=== PATIENT | female | born 1945 | race Caucasian/White ===

== ENCOUNTER → 2016-12-21 | Outpatient (CLI) | payer OTHER, MEDICARE | LOC: BMCIMAGING 09:50 | DX: Z12.31 Encounter for screening mammogram for malignant neoplasm of breast (principal) | CPT/HCPCS: G0202 ==

== ENCOUNTER → 2017-01-02 | Outpatient (CLI) | payer OTHER, MEDICARE | LOC: BMCIMAGING 12:42 | DX: R92.8 Other abnormal and inconclusive findings on diagnostic imaging of breast (principal); N63 Unspecified lump in breast | CPT/HCPCS: 76641; G0206 ==

== ENCOUNTER → 2017-02-15 | Outpatient (CLI) | payer OTHER, MEDICARE ==
[~2017-02-15] MED LIST: DEPO METHYLPREDNISOLONE 80 MG/ML SDV ONE; IOPAMIDOL (ISOVUE 370) 100 ML BTL IV ONE; LIDOCAINE 1% 30 ML SDV ONE; NA BICARBONATE 50 MEQ/50 ML VIAL ONE; ROPIVACAINE HCL 150 MG/30 ML INJ ONE
== END ==
LOC: FIMAGING 12:49
PROVIDERS: ATTEND Orthopaedic Surgery
DX: M25.551 Pain in right hip (principal)
CPT/HCPCS: 20610; J1040; J2795; Q9967

== ENCOUNTER 2017-11-25 10:45 | Observation (INO) | payer OTHER, MEDICARE ==
--- NOTE | 2017-12-22 11:49 | GHP ---
[f rep st] PREOP HISTORY AND PHYSICAL DATE OF ADMISSION: 12/23/2017 DATE OF PLANNED PROCEDURE: 12/23/2017. PREOPERATIVE DIAGNOSIS: Left shoulder rotator cuff tear. PLANNED PROCEDURE: Left rotator cuff repair. 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 She has injured the l eft shoulder. MRI was obtained, which showed a full-thickness cuff tear there. Decision has been ma tejal to proceed with a rotator cuff repair. PRIOR MEDICAL HISTORY: None. PRIOR SURGICAL HISTORY: Rotator cuff repair. ALLERGIES: Sulfa antibiotics. MEDICATIONS: Please see attached medication list. 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 She does not smoke, does not drink alcohol. REVIEW OF SYSTEMS: No shortness of breath or chest pain. PHYSICAL EXAMINATION: GENERAL: Healthy-appearing 72-year-old female. Alert and oriented x3. VITAL SIGNS: Blood pressure is 128/77, P 76, heart rate is 77, respiratory rate is 16 on room air. HEENT : Normocephalic, atraumatic. Extraocular muscles are intact. NECK: Supple. There is no lymphaden opathy, no JVD. CHEST: Clear to auscultation. CARDIOVASCULAR: Regular rate and rhythm. ABDOMEN: Soft, nontender, nondistended. EXTREMITIES: Focusing on the left shoulder, there is no obvious atr ophy in the supraspinatus or infraspinatus fossa. Active range of motion of the left shoulder: She has full extension, forward flexion to 150 degrees, passively I can get her to 170 degrees. Actively she has 60 degrees of external rotation, passively I can get her to 80. Internal rotation, she can get her thumb to L1. Rotator cuff strength: Supraspinatus 4-/5, infraspinatus 4/5, subscapularis 4+ /5. She does have a positive impingement sign. IMAGING STUDIES: MRI is reviewed, shows a full-thickness rotator cuff repair. PLAN: Rotator cuff repair, left shoulder. /[id number]/MODL
[2017-12-23] MEDS ORDERED: ceFAZolin 2 GM/SWFI 2 GM/20 ML SYR IVP ONE (06:10)
[2017-12-23] MEDS ORDERED: LR 1,000 ML IV ONE (06:13)
[2017-12-23] MEDS ORDERED: LIDOCAINE 1% 2 ML INJ ID PRN (06:13)
[2017-12-23] MEDS ORDERED: PROPOFOL 200 MG/20 ML VIAL ONE (06:26)
[2017-12-23] MEDS ORDERED: fentaNYL 100 MCG/2 ML INJ ONE ×2 (06:26→08:10)
[2017-12-23] MEDS ORDERED: LIDOCAINE 2% 100 MG/5 ML SYR ONE (06:27)
--- NOTE | 2017-12-23 06:41 | PDANEPAE ---
ANE History of Present Illness L shoulder injury here for rotator cuff repair ANE Past Medical History - Cardiovascular History Hx Hypertension: No Hx Arrhythmias: No Hx Chest Pain: No Hx Coronary Artery / Peripheral Vascular Disease: No Hx CHF / Valvular Disease: Yes Hx Palpitations: No Cardiovascular History Comment: heart murmur- followed by [facility] [place] Cards - Pulmonary History Hx COPD: No Hx Asthma/Reactive Airway Disease: Yes Hx Recent Upper Respiratory Infection: No Hx Oxygen in Use at Home: No Hx Sleep Apnea: No Sleep Apnea Screening Result - Last Documented: Negative Pulmonary History Comment: MILD ASTHMA - uses inhaler- instructed pt to bring with her. gets sob when particulates are high in the air - Neurologic History Hx Cerebrovascular Accident: No Hx Seizures: No Hx Dementia: No - Endocrine History Hx Diabetes: No Endocrine History Comment: hypothyroidism - Renal History Hx Renal Disorders: No - Liver History Hx Hepatic Disorders: No Hepatic History Comment: hx of slightly elevated liver enzymes - Neurological & Psychiatric Hx Hx Neurological and Psychiatric Disorders: No - Cancer History Hx Cancer: No - Congenital Disorder History Hx Congenital Disorders: No - GI History Hx Gastrointestinal Disorders: Yes Gastrointestinal History Comment: tends to be constipated- uses magnesium to help with regularity. occ reflux in the last 5 months or so - Other Health History Other Health History: legally blind. wears glasses - Chronic Pain History Chronic Pain: Yes (left shoulder, hips) - Surgical History Prior Surgeries: 12/27/14 right shoulder scope with [facility]. BREAST LUMPECTOMY L. LIPOSUCTION ABD. FACE. EYE, & BROW LIFT ANE Review of Systems Review of Systems: - Exercise capacity METS (RN): 4 METS ANE Patient History - Allergies Allergies/Adverse Reactions: gluten Allergy (Verified 12/02/17 11:09) food intolerance lactose Allergy (Verified 12/02/17 11:09) food intolerance perfume Allergy (Verified 12/02/17 11:10) sensitivity too Sulfa (Sulfonamide Antibiotics) Allergy (Verified 12/02/17 11:09) happened as a child- has not been tested since chemicals Allergy (Uncoded 12/02/17 11:10) sensitivity too - Home Medications Home Medications: Herbals/Supplements -Info Only 1 ea PO DAILY 12/27/14 [Last Taken 12/20/17] LORazepam [Ativan (*)] 0.25 mg PO HS 12/27/14 [Last Taken 1 Day Ago ~12/22/17] Levothyroxine [Synthroid 100 mcg (*)] 100 mcg PO DAILY06 12/27/14 [Last Taken ] Pyridoxine HCl [Vitamin B-6 100 mg (OTC)] 100 mg PO DAILY 12/27/14 [Last Taken 12/16/17] Vitamin B Complex [B Complex] 1 each PO DAILY 12/27/14 [Last Taken 12/16/17] Albuterol [Proventil Inhaler HFA (*)] 1 - 2 puffs IH DAILY PRN 11/26/17 [Last Taken 3 Months Ago ~09/24/17] Biest 5mg Cap 5 mg PO DAILY 11/26/17 [Last Taken 1 Day Ago ~12/22/17] Cmp Testosterone Cream 1 marleny TP DAILY 11/26/17 [Last Taken 1 Day Ago ~12/22/17] Compounded Progesterone 100 mg PO HS 11/26/17 [Last Taken 1 Day Ago ~12/22/17] Sodium Cl Nasal [[place] (*)] 1 spray NS 11/26/17 [Last Taken 1 Day Ago ~ 12/22/17] Tears/Dextran 70/Hypromellose [Natural Balance Tears (*)] 1 drop EACHEYE DAILY PRN 11/26/17 [Last Taken 12/23/17] - NPO status NPO Since - Liquids (Date): 12/23/17 NPO Since - Liquids (Time): 04:15 NPO Since - Solids (Date): 12/22/17 NPO Since - Solids (Time): 19:00 - Anes Hx Anes Hx: post operative nausea - Smoking Hx Smoking Status: Never smoked - Alcohol Use Alcohol Use: Rarely - Family Anes Hx Family Anes Hx: none Family Hx Anesthesia Complications: NEG ANE Labs/Vital Signs - Vital Signs Blood Pressure: 111/61 Heart Rate: 49 Respiratory Rate: 18 O2 Sat (%): 95 Height: 157.48 cm Weight: 52.163 kg ANE Physical Exam - Airway Neck exam: FROM Mallampati Score: Class 2 Mouth exam: normal dental/mouth exam Mouth image: 1 - missing 2 - missing 3 - missing 4 - missing - Pulmonary Pulmonary: no respiratory distress, clear to auscultation - Cardiovascular Cardiovascular: regular rate and rhythym, no murmur, rub, or gallop - ASA Status ASA Status: III ANE Anesthesia Plan Anesthesia Plan: general endotracheal anesthesia Regional Anesthesia: single shot NB, interscalene BP NB
[2017-12-23] MEDS ORDERED: EPINEPHrine 30 MG/30 ML MDV (0.1 MG/0.1 ML) ONE (06:43)
[2017-12-23] MEDS ORDERED: LIDO/EPI 1% **for epidural** 30 ML SDV ONE (06:43)
[2017-12-23] MEDS ORDERED: BUPIVACAINE/EPI 0.5% 30 ML SDV ONE (06:43)
[2017-12-23] MEDS ORDERED: MIDAZOLAM 2 MG/2 ML VIAL IVP ONE (06:44)
--- NOTE | 2017-12-23 07:03 | PDHPUP ---
History & Physical Update H&P update statement: This history and physical update is based on an assessment of the patient which was completed after admission or registration (within 24 hours), but prior to the surgery/procedure. H&P update: H&P reviewed & patient examined, no change in patient's condition since H&P completed
[2017-12-23] MEDS ORDERED: THROMBIN (BOVINE) 5,000 UNIT VIAL TP ONE (07:40)
[2017-12-23] MEDS ORDERED: CALCIUM CHLORIDE 1 GM/10 ML INJ ONE (07:40)
[2017-12-23] MEDS ORDERED: ONDANSETRON 4 MG/2 ML VIAL ONE ×2 (08:24→09:18)
[2017-12-23] MEDS ORDERED: DEXAMETHASONE 4 MG/ML VIAL ONE (08:24)
[2017-12-23] MEDS ORDERED: SUGAMMADEX SODIUM 200 MG/2 ML VIAL IVP ONE (08:53)
[2017-12-23] MEDS ORDERED: HYDROCODONE/APAP 5/325 TAB PO PRN ×2 (09:08→09:10)
[2017-12-23] MEDS ORDERED: ONDANSETRON 4 MG/2 ML VIAL IVP PRN ×2 (09:08→09:10)
[2017-12-23] MEDS ORDERED: KETOROLAC 15 MG/1 ML SDV IVP ONE (09:08)
[2017-12-23] MEDS ORDERED: ACETAMINOPHEN 325 MG TAB PO PRN (09:08)
[2017-12-23] MEDS ORDERED: OXYCODONE/APAP 5/325 TAB PO PRN ×2 (09:08→09:10)
[2017-12-23] MEDS ORDERED: NALOXONE HCL 0.4 MG/ML INJ IVP PRN (09:10)
[2017-12-23] MEDS ORDERED: PROMETHAZINE HCL 25 MG/ML INJ IVP PRN (09:10)
[2017-12-23] MEDS ORDERED: ACETAMINOPHEN 500 MG TAB PO PRN (09:10)
[2017-12-23] MEDS ORDERED: fentaNYL 100 MCG/2 ML INJ IVP PRN (09:10)
[2017-12-23] MEDS ORDERED: HYDROmorphONE/DILAUDID 1 MG/ML INJ IVP PRN (09:10)
--- NOTE | 2017-12-23 09:12 | POSTANESTH ---
Post Anesthetic Evaluation Cardiovascular Status: Normal, Stable, Similar to Pre-Op Cond Respiratory Status: Normal, Stable, Similar to Pre-op Cond. Level of Consciousness/Mental Status: Can Participate in Eval, Alert and Oriented Pain Control: Adequate, Prn Tx Ordered Nausea/Vomiting Control: Adequate, Prn Tx Ordered Complications Possibly Related to Anesthesia: None Noted
--- NOTE | 2017-12-23 09:14 | POSTOPPROG ---
Post Op Note Date of Operation: 12/23/17 Surgeon: Yogi Truong Vending Machine Coin Collector: Cornelius MONROE Anesthesiologist: Reanna Anesthesia: GET(General Endotracheal) Pre-op Diagnosis: LT RC tear Post-op Diagnosis: same Procedure: 1. RCR, SAD, labral debridement Findings: full thickness RC tear Inf/Abcess present in the surg proc area at time of surgery?: No EBL: Minimal Complications: none
[2017-12-23] MEDS ORDERED: D5W 1/2 NS W/ 20 KCl/L 1,000 ML IV SCH (09:15)
[2017-12-23] MEDS ORDERED: PROMETHAZINE HCL 25 MG/ML INJ ONE (09:18)
[2017-12-23] MEDS ORDERED: HYDROmorphONE/DILAUDID 2 MG/ML INJ IVP PRN (09:28)
[2017-12-23] MEDS: KETOROLAC 15 MG/1 ML SDV IVP SCH ×2 (12:11→18:30)
--- NOTE | 2017-12-23 15:36 | GOP ---
[f rep st] OPERATIVE REPORT DATE OF OPERATION: 12/23/2017 SURGEON: Yogi Truong MD [employer] TEACHER: Cornelius Gilman PA-C. ANESTHESIA: General endotracheal tube anesthesia. ANESTHESIOLOGIST: Dr. Forte. PREOPERATIVE DIAGNOSIS: Left shoulder rotator cuff tear. POSTOPERATIVE DIAGNOSIS: Left shoulder rotator cuff tear. PROCEDURE PERFORMED: 1. Arthroscopic rotator cuff repair. 2. Subacromial decompression. 3. Labral debridement. FINDINGS: INDICATIONS: The patient is a 72-year-old female who sustained a fall and subsequent full-thickness rotator cuff tear. She has failed conservative management. Decision was made to proceed with an art hroscopic rotator cuff repair. DESCRIPTION OF PROCEDURE: After appropriate informed consent was obtained, patient taken to the oper ating room, placed supine on the operating table. Time-out was performed. Patient was identified, c orrect site was identified. She received 2 g Ancef preoperatively. Following the induction of gener al endotracheal tube anesthesia, left upper extremity was prepped and draped in usual sterile fashion . She was placed in the beach chair position with all bony prominences well padded. Left upper extr emity, I instilled 30 mL 1% lidocaine with normal saline, 30 mL of 1% lidocaine with epinephrine thro ugh a standard posterior portal. I made a small lindy incision, and introduced the camera through the standard posterior portal. I obtained a standard anterior portal under direct visualization, placed a 4.5 mm working cannula through there. She had some degenerative tearing and fraying of the superior and anterior aspect of the labrum. Thi s was debrided back. Biceps tendon and anchor were intact. There was a full-thickness tear of the s upraspinatus mainly involving the anterior corner which was retracted posteriorly back to the infrasp inatus to the level of the joint line. I repositioned the camera in the subacromial space and obtain ed a standard lateral portal under direct visualization. Then obtained another posterior lateral por adrian as a viewing portal to better visualize the cuff tear. The footprint was roughened up with a mot orized shaver and barrel bur. The cuff mobilized nicely. I repositioned the anterior cannula in the subacromial space as a shuttling portal, and then we placed a medial row of 2 anchors, using our Sco rpion suture-passing device. We passed our suture through the rotator cuff, pulled the limbs out ant eriorly, and then crisscrossed them and pulled them back and placed a lateral row anchor, securely af fixing the rotator cuff back to the footprint. Suture ends were cut. Then, using a barrel bur and e lectrocautery device, we performed subacromial decompression. The distal end of the clavicle only sh owed mild changes with no inferior spurring, so we left that alone. Instruments were withdrawn. Portal incisions were closed with 3-0 nylon. I instilled 30 mL of 0.5% Marcaine with epinephrine into the shoulder joint. A sterile dressing, sling and abduction pillow we re all applied. The patient was awakened from anesthesia, taken to recovery room in satisfactory con dition. There were no immediate intraoperative complications. Jason Gilman's assistance was required throughout the entire case. IMPLANTS USED: Arthrex 4.75 mm SwiveLock anchors x4. COMPLICATIONS: None. DRAINS: None. /[id number]/MODL
[2017-12-23 16:13] VITALS: RESP 16
[2017-12-23] MEDS: DOCUSATE SODIUM 100 MG CAP PO SCH (21:22)
[2017-12-24] MEDS: KETOROLAC 15 MG/1 ML SDV IVP SCH ×2 (00:47→06:14)
--- NOTE | 2017-12-24 06:59 | SOAPPROG ---
SOAP Progress Note Assessment/Plan: Assessment: POD#1 LT RCR Plan: 12/24/17 06:58 DC home, sling/abduction pillowx 6 weeks f/u [facility] 2 weeks may remove dressing shower Subjective: feeling good slept o/n Objective: dressing c/d/i moving fingers brisk cap refill Vital Signs Temp Pulse Resp BP Pulse Ox 36.7 C 54 L 16 118/61 94 12/24/17 04:09 12/24/17 04:09 12/24/17 04:09 12/24/17 04:09 12/24/17 04:09 12/23/17 12/24/17 12/25/17 05:59 05:59 05:59 Intake Total 2320 Output Total 150 Balance 2170 ICD10 Worksheet Patient Problems: Problems Problem Status Onset Rotator cuff rupture, complete Acute
[2017-12-24 07:40] VITALS: BP 126/54; PULSE 50; TEMP 97.6; O2SAT 95
[2017-12-24] MEDS: DOCUSATE SODIUM 100 MG CAP PO SCH (09:45)
== END 2017-12-24 11:10 | disposition home or self-care (01) ==
LOC: F3N 12-23 05:37 → INTOOBSV 12-23 05:37 → F3N 12-23 10:07 → UNDODISOB 12-24 11:13
PROVIDERS: ADMIT Orthopaedic Surgery; ATTEND Orthopaedic Surgery
PROC: 0MN24ZZ Release Left Shoulder Bursa and Ligament, Percutaneous Endoscopic Approach (ICD-10-PCS; principal; 2017-12-23 07:15)
PROC: 0MB24ZZ Excision of Left Shoulder Bursa and Ligament, Percutaneous Endoscopic Approach (ICD-10-PCS; principal; 2017-12-23 07:15)
PROC: 0LQ24ZZ Repair Left Shoulder Tendon, Percutaneous Endoscopic Approach (ICD-10-PCS; principal; 2017-12-23 07:15)
DX: M75.102 Unspecified rotator cuff tear or rupture of left shoulder, not specified as traumatic (principal)
CPT/HCPCS: 29826; 29827; C1713; J0171; J0690; J1100; J1885; J2001; J2250; J2405; J2704; J3010; J2550